=== PATIENT | male | born 1965 | race Asian ===

== ENCOUNTER 2017-04-02 07:29 | Day surgery (SDC) | payer OTHER ==
[2017-03-29 11:32] LABS: BASOPHILS # (AUTO) 0.1 K/uL (0.00-0.22); BASOPHILS % (AUTO) 2.8 % (0.0-2.0); EOSINOPHILS # (AUTO) 0.1 K/uL (0-0.4); EOSINOPHILS % (AUTO) 2.4 % (0.0-4.0); HEMOGLOBIN 14.6 g/dL (12.0-18.0); LYMPHOCYTES # (AUTO) 1.9 K/uL (2.0-11.5); LYMPHOCYTES % (AUTO) 38.8 % (20.5-51.1); MEAN CORPUSCULAR HEMOGLOBIN 30 pg (27-31); MEAN CORPUSCULAR HGB CONC 34 g/dL (33-37); MEAN CORPUSCULAR VOLUME 88 fL (80-94); MONOCYTES # (AUTO) 0.2 K/uL (0.8-1.0); MONOCYTES % (AUTO) 4.1 % (1.7-9.3); NEUTROPHILS # (AUTO) 2.5 K/uL (1.8-7.7); NEUTROPHILS % (AUTO) 51.9 % (42.2-75.2); PLATELET COUNT (AUTO) 232 K/uL (140-450); RED CELL DISTRIBUTION WIDTH 12.6 % (11.6-13.7); WHITE BLOOD COUNT (AUTO) 4.8 K/uL (4.8-10.8)
[2017-03-29 11:54] LABS: ALBUMIN 3.9 g/dL (3.4-5.0); ANION GAP 11.8 (8-16); CALCIUM 8.7 mg/dL (8.5-10.1); CARBON DIOXIDE 26.9 mmol/L (21-32); CREATININE 0.9 mg/dL (0.6-1.3); POTASSIUM 3.7 mmol/L (3.5-5.1); TOTAL BILIRUBIN 1.1 mg/dL (0.0-1.0); TOTAL PROTEIN, SERUM 7.2 g/dL (6.4-8.2)
[~2017-04-02] VITALS: Ht 170.2 cm; Wt 73.5 kg
[2017-04-02] MEDS ORDERED: fentaNYL 0.05 MG/ML VIAL ONE (09:41)
[2017-04-02] MEDS ORDERED: MEPERIDINE 50 MG/ML SYR ONE (09:41)
[2017-04-02] MEDS ORDERED: MIDAZOLAM 2 MG/2 ML VIAL ONE (09:41)
[2017-04-02] MEDS ORDERED: SEVOFLURANE 250 ML BTL INH ONE (09:46)
[2017-04-02] MEDS ORDERED: PROPOFOL 200 MG/20 ML VIAL IV ONE (09:46)
[2017-04-02] MEDS ORDERED: DEXAMETHASONE 4 MG/ML VIAL IVP ONE (09:46)
[2017-04-02] MEDS ORDERED: GELATIN SPONGE 100 1 SPG TP SCH (09:55)
[2017-04-02] MEDS ORDERED: LIDOCAINE JELLY 2% 30 ML TUBE TP ONE (09:58)
[2017-04-02] MEDS ORDERED: BUPIVACAINE-MPF/EPI 0.25% 10 ML VIAL INJ ONE (09:59)
[2017-04-02] MEDS ORDERED: BUPIVACAINE-MPF/EPI 0.25% 30 ML VIAL INJ ONE (09:59)
[2017-04-02] MEDS ORDERED: MEPERIDINE 25 MG/ML SYR IVP PRN (10:40)
[2017-04-02] MEDS ORDERED: diphenhydrAMINE 50 MG/ML VIAL IVP PRN (10:40)
[2017-04-02] MEDS ORDERED: HYDROmorphone 1 MG/ML AMP IVP PRN ×2 (10:40→11:35)
[2017-04-02] MEDS ORDERED: NACL 0.9% 1,000 ML IV SCH (10:40)
[2017-04-02] MEDS ORDERED: ONDANSETRON 4 MG/2 ML VIAL IVP PRN (10:40)
[2017-04-02] MEDS ORDERED: BLOOD GLUCOSE MONITORING 1 DEV DEV FS ONE (10:40)
[2017-04-02] MEDS ORDERED: BLOOD GLUCOSE MONITORING 1 DEV DEV FS SCH (10:50)
[2017-04-02] MEDS ORDERED: HYDROcodone/APAP 5/325 MG 1 TAB TAB PO PRN (11:35)
[2017-04-02] MEDS ORDERED: ONDANSETRON 4 MG/2 ML VIAL IV PRN (11:35)
[2017-04-02] MEDS ORDERED: MORPHINE SULFATE 2 MG/ML SYR IVP PRN (11:35)
[2017-04-02] MEDS ORDERED: MORPHINE SULFATE 4 MG/ML SYR IV PRN (11:35)
== END 2017-04-02 12:38 | disposition home or self-care (01) ==
LOC: MDS 07:29 → MMU 07:30 → MDS 12:38
PROVIDERS: ATTEND Surgery
DX: K64.8 Other hemorrhoids (principal); K64.4 Residual hemorrhoidal skin tags; K60.2 Anal fissure, unspecified; E11.9 Type 2 diabetes mellitus without complications; Z98.890 Other specified postprocedural states; Z79.899 Other long term (current) drug therapy; Z90.49 Acquired absence of other specified parts of digestive tract
CPT/HCPCS: 36415; 46261; 71010; 80053; 85025; 93005; J0690; J1100; J2175; J2250; J2704; J3010; J3490; J7060; 88304